=== PATIENT | female | born 1945 | race Caucasian/White ===

== ENCOUNTER 2018-06-01 10:44 | Emergency (ER) | payer MEDICARE, OTHER ==
[~2018-06-01] VITALS: Ht 165.1 cm; Wt 65.8 kg
[2018-06-01 11:21] VITALS: BP 129/79
== END 2018-06-01 15:03 | disposition home or self-care (01) ==
LOC: ER 10:44
DX: M17.11 Unilateral primary osteoarthritis, right knee (principal)
CPT/HCPCS: 73562